=== PATIENT | male | born 1990 | race Caucasian/White ===

== ENCOUNTER 2024-02-26 05:32 | Emergency (ER) | payer BC, SELFPAY ==
[2024-02-26 05:32] VITALS: BP 162/95; PULSE 108; RESP 20; TEMP 36.3; O2SAT 96; BMI 36.5
--- NOTE | 2024-02-26 05:34 | EDS_ITS ---
HPI History of Present Illness Chief Complaint: Dental [facility] Medical History (Updated 02/26/24 @ 05:[address] Eric Ruiz, DO) Acute pharyngitis, unspecified Contact dermatitis due to poison yasir Home Medications clindamycin HCl 300 mg capsule 300 mg PO TID 7 days #21 caps 02/26/24 [Rx Last Taken Unknown] Allergy/AdvReac Type Severity Reaction Status Date / Time prednisone Allergy Intermediate Hives Verified 06/08/23 17:03 amoxicillin Allergy unknown Verified 06/08/23 16:24 cefaclor [From Ceclor] Allergy unknown Verified 06/08/23 16:24 Family History Other Cancer Hypertension Social History Smoking Status: Never smoker alcohol intake: current alcohol intake frequency: a few times a month Alcohol type: beer and wine EXAM Physical Exam Const Vital Signs: 02/26/24 05:32 02/26/24 05:35 02/26/24 05:50 Temperature 97.4 F L 97.4 F L 97.8 F Temperature Source Temporal Temporal Pulse Rate 108 H 108 H 96 Respiratory Rate 20 H 20 H 14 Blood Pressure 162/95 H 162/95 H 141/91 H Blood Pressure Mean 117 117 107 Pulse Ox 96 96 94 Oxygen Delivery Method Room Air Room Air [facility] Narrative Medical decision making narrative: HISTORY OF PRESENT ILLNESS: 34-year-old male presents with right-sided dental pain. Notes this began 2 days ago. NOtes woke this morning with increased pain and swelling. No fever, no vomiting. No neck stiffness. No drooling. No difficulty swallowing. No submandibular edema. REVIEW OF SYSTEMS: Pertinent positives: Dental pain Pertinent negatives: PHYSICAL EXAM: Nursing triage notes reviewed, Vital signs reviewed Constitutional: please see mdm HENT: MMM, n poor dentition, dental erosion noted to right upper molar. No evidence of dental abscess, no submandibular edema or induration, no tonsillar exudates or erythema, uvula midline, patient was controlling secretions, no drooling, no trimus, no dysphonia Eyes: Pupils equal round and reactive to light, Extraocular muscles intact Neck: No stridor, no JVD, full neck ROM Lungs: Clear to auscultation, No wheezing or rales. No increased work of breathing, no conversational dyspnea, no accessory muscle use, no nasal flaring. No respiratory distress noted Heart: Regular rate and rhythm, No murmurs, No rubs and No gallops, 2+ distal pulses (radial, femoral, posterior tibial) in all extremities MEDICAL DECISION MAKING: Chief Complaint: Dental pain External records reviewed: No recent ED visits or hospitalizations noted Factors affecting care: None MDM Narrative: The patient was hemodynamically stable, afebrile, nontoxic-appearing. I considered the following differential diagnosis: Dental abscess, ANUG, Ludew ig's angina, RPA, SAMPLE SELECTOR, dental caries, gingivitis Exam not consistent with dental abscess of the after mentioned emergencies. Is most consistent with dental caries and poor dentition. Will give prophylactic antibiotics and give close dentistry follow-up. Shared decision making: I will have a discussion with the patient and or visitors regarding risk/benefits of further testing or admission. They will be made aware of of the risk/benefits inherent in this decision they will be given the opportunity to voice understanding. Impression: 1. Dental pain 2. Dental caries Disposition: Discharge home This note was generated with [employer] dictation software. It may contain incorrect words, spelling, and punctuation that were not noted in review of the chart prior to signing. Discharge Plan Triage Chief Complaint: Dental ED Provider: Eric Ruiz Dx/Rx/DC Orders Clinical Impression: Dental caries Instructions: ED Dental Pain Prescriptions: New clindamycin HCl 300 mg capsule 300 mg PO TID 7 Days Qty: 21 0RF Primary Care Provider: Care Physician,No Primary Activity Restrictions/Additional Instructions: Thank you for trusting us with your care today! Please take Tylenol (2 pills, 650 mg), ibuprofen (2 pills, 400 mg) every 6 hours as needed for pain and fever control. Please take all antibiotics till course is complete. Please return to the emergency department if your symptoms change or worsen. Specifically develop drooling, difficulty swallowing, throat closure, swelling underneath your jaw. Please follow with dentistry for further outpatient evaluation and management. Disposition Disposition: Home, Self Care
[2024-02-26 05:35] VITALS: BP 162/95; PULSE 108; RESP 20; TEMP 36.3; O2SAT 96
[2024-02-26 05:50] VITALS: BP 141/91; PULSE 96; RESP 14; TEMP 36.6; O2SAT 94
[2024-02-26] MEDS: Clindamycin HCl 150 MG Capsule 450 MG PO (05:50)
== END 2024-02-26 05:59 | disposition home or self-care (01) ==
PROVIDERS: Emergency Provider Emergency Medicine; Visit Provider Emergency Medicine
DX: K08.89 Other specified disorders of teeth and supporting structures (principal); K02.9 Dental caries, unspecified
CPT/HCPCS: 99282